=== PATIENT | female | born 1940 | race Caucasian/White ===

== ENCOUNTER 2025-08-02 16:42 | Outpatient (CLI) | payer MEDICARE, MEDICAID ==
[2025-08-02 16:51] LABS: Bacteria/HPF 4+ HPF (None Seen); Glucose, Urine (Dipstick) Negative (Negative); Leukocyte Moderate (Negative); Protein, Urine (Dipstick) Negative (Neg-Trace); RBC/HPF None Seen HPF (0-3); Specific Gravity, Urine 1.015 (1.005-1.030)
== END 2025-08-02 16:43 | disposition home or self-care (01) ==
LOC: MADLAB 16:42
PROVIDERS: ATTEND Internal Medicine
DX: N32.81 Overactive bladder (principal); F33.9 Major depressive disorder, recurrent, unspecified
CPT/HCPCS: 81001